=== PATIENT | male | born 1980 | race Two or more races ===

== ENCOUNTER → 2018-01-16 | Outpatient (CLI) | payer MEDICAID | LOC: M OUTALCOH 09:09 | DX: Z13.9 Encounter for screening, unspecified (principal); F10.10 Alcohol abuse, uncomplicated ==

== ENCOUNTER 2018-01-28 10:00 | Outpatient (RCR) | payer MEDICAID | END 2018-01-30 | LOC: M OUTALCOH 10:00 | DX: F10.10 Alcohol abuse, uncomplicated (principal) ==

== ENCOUNTER 2018-02-06 11:47 | Outpatient (RCR) | payer MEDICAID | END 2018-03-01 | LOC: M OUTALCOH 11:47 | DX: F10.10 Alcohol abuse, uncomplicated (principal) ==

== ENCOUNTER 2018-03-06 15:35 | Outpatient (RCR) | payer MEDICAID | END 2018-04-01 | LOC: M OUTALCOH 15:35 | DX: F10.10 Alcohol abuse, uncomplicated (principal) ==

== ENCOUNTER 2018-05-16 13:00 | Outpatient (RCR) | payer MEDICAID | END 2018-06-01 | LOC: M OUTALCOH 13:00 | DX: F10.10 Alcohol abuse, uncomplicated (principal) ==

== ENCOUNTER 2022-04-18 12:54 | Outpatient (RCR) | payer MEDICAID | END 2022-05-02 | LOC: M OUTALCOH 12:54 | PROVIDERS: ATTEND Psychiatry & Neurology Psychiatry | DX: Z03.89 Encounter for observation for other suspected diseases and conditions ruled out (principal) ==

== ENCOUNTER → 2023-05-02 | Outpatient (CLI) | payer OTHER | LOC: M PLARAD 14:33 | PROVIDERS: ATTEND Nurse Practitioner | DX: S46.112A Strain of muscle, fascia and tendon of long head of biceps, left arm, initial encounter (principal); M77.12 Lateral epicondylitis, left elbow; Y93.9 Activity, unspecified; Y92.9 Unspecified place or not applicable ==

== ENCOUNTER 2023-05-15 06:19 | Day surgery (SDC) | payer OTHER ==
[~2023-05-15] VITALS: Ht 177.8 cm; Wt 120.2 kg
[~2023-05-15 06:19] MED LIST: ceFAZolin SOD 2 GM in IV 1 EA IV ONE
[2023-05-15] MEDS ORDERED: LR 1,000 ML IV SCH ×2 (06:40→09:35)
[2023-05-15] MEDS ORDERED: BACITRACIN OINTMENT 30GM TUBE As Ordered ONE (07:15)
[2023-05-15] MEDS ORDERED: LIDOCAINE W/EPINEPHRINE 1% 20ML VIAL As Ordered ONE (07:15)
[2023-05-15] MEDS ORDERED: EPINEPHrine INJ 1 MG/ML 1ML AMP PN ONE (07:20)
[2023-05-15] MEDS ORDERED: fentaNYL 100 MCG/2 ML INJECTION IV PRN ×2 (07:20→09:35)
[2023-05-15] MEDS ORDERED: ROPIvacaine 0.5% 30ML VIAL PN ONE (07:20)
[2023-05-15] MEDS ORDERED: dexAMETHasone 10MG/1ML VIAL PRES.FREE PN ONE (07:20)
[2023-05-15] MEDS ORDERED: LIDOCAINE 1% SDV 5ML VIAL PN ONE (07:20)
[2023-05-15] MEDS: MIDAZOLAM INJ 2MG/2ML VIAL IV PRN ×2 (07:30→07:32)
[2023-05-15] MEDS ORDERED: MIDAZOLAM INJ 2MG/2ML VIAL As Ordered ONE (07:58)
[2023-05-15] MEDS ORDERED: fentaNYL 100 MCG/2 ML INJECTION As Ordered ONE (07:58)
[2023-05-15] MEDS ORDERED: propofoL 200 MG/20 ML VIAL As Ordered ONE (07:58)
[2023-05-15] MEDS ORDERED: ONDANSETRON 4MG 2ML VIAL As Ordered ONE (07:58)
[2023-05-15] MEDS ORDERED: LIDOCAINE 2% 100MG/5ML SDV (FOR ANES.) As Ordered ONE (07:58)
[2023-05-15] MEDS ORDERED: ACETAMINOPHEN 1000MG 100ML IV BAG As Ordered ONE (08:10)
[2023-05-15] MEDS ORDERED: dexmedeTOMIDine (4MCG/ML)200MCG/50ML BTL (PRECEDEX) As Ordered ONE (08:35)
[2023-05-15] MEDS ORDERED: ONDANSETRON 4MG 2ML VIAL IV PRN (09:35)
[2023-05-15] MEDS ORDERED: METOCLOPRAMIDE INJ 10MG/2ML VIAL IV PRN (09:35)
[2023-05-15] MEDS ORDERED: oxyCODONE 5MG TAB PO PRN (09:35)
[2023-05-15] MEDS ORDERED: PERC5TAB12 PO (09:48)
[2023-05-15 11:12] VITALS: BP 136/90; TEMP 97.3; O2SAT 93
== END 2023-05-15 11:42 | disposition home or self-care (01) ==
LOC: M SDC 06:19
PROVIDERS: ATTEND Orthopaedic Surgery Hand Surgery
DX: S46.212A Strain of muscle, fascia and tendon of other parts of biceps, left arm, initial encounter (principal); X50.0XXA Overexertion from strenuous movement or load, initial encounter; Y92.89 Other specified places as the place of occurrence of the external cause
CPT/HCPCS: 24341; 76000; C1713; J0131; J0690; J1100; J2250; J2405; J3010

== ENCOUNTER → 2023-05-24 | Outpatient (CLI) | payer OTHER ==
[~2023-05-24] MED LIST changes: +PERC5TAB12 PO; -ceFAZolin SOD 2 GM in IV 1 EA IV ONE
== END ==
LOC: M SOG 09:08
PROVIDERS: ATTEND Physician Assistant
DX: S46.212D Strain of muscle, fascia and tendon of other parts of biceps, left arm, subsequent encounter (principal)

== ENCOUNTER → 2023-06-24 | Outpatient (CLI) | payer OTHER | LOC: M SOG 08:25 | PROVIDERS: ATTEND Physician Assistant | DX: S46.212A Strain of muscle, fascia and tendon of other parts of biceps, left arm, initial encounter (principal); Y93.9 Activity, unspecified; Y92.9 Unspecified place or not applicable ==

== ENCOUNTER → 2023-08-05 | Outpatient (CLI) | payer OTHER | LOC: M SOG 07:55 | PROVIDERS: ATTEND Physician Assistant | DX: S46.212D Strain of muscle, fascia and tendon of other parts of biceps, left arm, subsequent encounter (principal); M25.722 Osteophyte, left elbow; Y93.9 Activity, unspecified; Y92.9 Unspecified place or not applicable ==